=== PATIENT | male | born 1980 | race Caucasian/White ===

== ENCOUNTER 2017-09-16 19:34 | Emergency (ER) | payer MEDICAID ==
[~2017-09-16] VITALS: Ht 172.7 cm; Wt 90.7 kg
[2017-09-16 19:52] VITALS: BP 121/70
[2017-09-16 21:06] VITALS: BP 108/94
== END 2017-09-16 21:06 | disposition home or self-care (01) ==
LOC: MED 19:34
DX: J02.9 Acute pharyngitis, unspecified (principal)
CPT/HCPCS: 99283

== ENCOUNTER 2017-10-30 20:03 | Emergency (ER) | payer MEDICAID ==
[~2017-10-30] VITALS: Ht 170.2 cm; Wt 88.5 kg
[2017-10-30 20:05] VITALS: BP 120/84
--- NOTE | 2017-10-30 20:09 | NUR ---
PT AMBULATORY TO WR W/ STEADY GAIT IN STABLE CONDITION.
--- NOTE | 2017-10-30 20:30 | NUR ---
PT BIB SELF C/O PENIS PAIN AND LEFT GROIN PAIN X 2 DAYS S/P INTERCOURSE. PT DENIES DYSURIA. PT DENIES D/C. PT LAYING IN BED, COMFORT NEEDS MET AT THIS TIME. PT PROVIDED URINE SPECIMEN.
[2017-10-30 20:55] LABS: APPEARANCE,URINE CLEAR (CLEAR); BILIRUBIN,URINE NEGATIVE (NEGATIVE); BLOOD, URINE NEGATIVE (NEGATIVE); COLOR,URINE YELLOW (YELLOW); LEUKOCYTE ESTERASE ,URINE NEGATIVE (NEGATIVE); NITRITE, URINE NEGATIVE (NEGATIVE); UGLUCOSE NEGATIVE (NEGATIVE)
[2017-10-30] MEDS ORDERED: KETOROLAC 60 MG/2 ML VIAL IM ONE (22:55)
[2017-10-30 23:40] VITALS: BP 129/59
[2017-11-01 07:26] LABS: CHLAMYDIA TRACHOMATIS AMP DNA Negative (Negative)
== END 2017-10-30 23:40 | disposition home or self-care (01) ==
LOC: MED 20:03
DX: K40.90 Unilateral inguinal hernia, without obstruction or gangrene, not specified as recurrent (principal)
CPT/HCPCS: 36415; 81003; 87491; 96372; 99283; J1885

== ENCOUNTER 2019-09-03 15:49 | Inpatient (IN) | payer MEDICAID ==
[~2019-09-03] VITALS: Ht 172.7 cm; Wt 76.7 kg
[2019-09-03 16:03] VITALS: BP 113/68
--- NOTE | 2019-09-03 16:12 | NUR ---
PT AMBULATED TO ER BED 09
--- NOTE | 2019-09-03 16:13 | NUR ---
PT REFUSED TO BE PUT IN ROOM 9 D/T FEAR OF CATCHING COVID, NO OTHER BEDS AVAILABLE AT THIS TIME. PLACED IN LOBBY
--- NOTE | 2019-09-03 16:14 | NUR ---
PATIENT DID NOT WANT TO WAIT TO BE SEEN IN BED 9. PATIENT REQUESTING TO WAIT IN LOBBY AND REFUSING TO GO INTO AN ISOLATION ROOM. PT ADVISED THERE ARE NOT ANY OTHER ROOMS AVAILABLE AT THIS TIME. PT STATES "THAT'S FINE I'LL WAIT."
--- NOTE | 2019-09-03 16:40 | NUR ---
PT PLACED IN CHAIR A.
--- NOTE | 2019-09-03 17:06 | NUR ---
PT MOVED TO BED 6.
--- NOTE | 2019-09-03 17:11 | NUR ---
38 Y/O MALE C/O LLQ PAIN, DIARRHEA AND NAUSEA FOR TWO WEEKS. PT STATES WE WENT TO URGENT CARE A FEW WEEKS AGO AND WAS CONFIRMED TO HAVE DIVERTICULITIS, GIVEN ANTIBIOTICS, AND IS ALMOST FINISHED TAKING THE COURSE. PT STATES HE HAS BEEN CONTROLLING PAIN WITH 800MG MOTRIN, BUT TODAY HIS PAIN IS UNBEARABLE AND HE HASNT BEEN ABLE TO EAT ANYTHING SOLID. ABD IS SOFT/TENDER AT LLQ AND NON DISTENDED. RESP EVEN AND UNLABORED. PT IS AFEBRILE. DENIES ANY SOB/COUGH/CP. NO PMH NKA
[2019-09-03] MEDS ORDERED: NACL 0.9% 1,000 ML IV ONE ×2 (17:40→20:10)
[2019-09-03] MEDS ORDERED: cefTRIAXone 1,000 MG VIAL ONE (17:47)
[2019-09-03 17:51] LABS: BASOPHILS # (AUTO) 0.1 K/uL (0.00-0.22); BASOPHILS % (AUTO) 1.5 % (0.0-2.0); EOSINOPHILS % (AUTO) 0.4 % (0.0-4.0); HEMOGLOBIN 13.1 g/dL (12.0-18.0); LYMPHOCYTES # (AUTO) 1.5 K/uL (2.0-11.5); LYMPHOCYTES % (AUTO) 20.5 % (20.5-51.1); MEAN CORPUSCULAR HEMOGLOBIN 30 pg (27-31); MEAN CORPUSCULAR HGB CONC 34 g/dL (33-37); MEAN CORPUSCULAR VOLUME 89.6 fL (80-94); MONOCYTES # (AUTO) 0.7 K/uL (0.8-1.0); MONOCYTES % (AUTO) 9.5 % (1.7-9.3); NEUTROPHILS % (AUTO) 68.1 % (42.2-75.2); PLATELET COUNT (AUTO) 369 K/uL (140-450); RED BLOOD CELL COUNT(AUTO) 4.36 MIL/uL (4.20-6.10); WHITE BLOOD COUNT (AUTO) 7.3 K/uL (4.8-10.8)
--- NOTE | 2019-09-03 17:56 | NUR ---
CT CONSENT SIGNED AT BEDSIDE
[2019-09-03 18:48] LABS: ANION GAP 11.6 (8-16); CARBON DIOXIDE 30.8 mmol/L (21-32); POTASSIUM 4.4 mmol/L (3.5-5.1)
[2019-09-03 18:49] LABS: ALBUMIN 3.2 g/dL (3.4-5.0); TOTAL BILIRUBIN 0.5 mg/dL (0.0-1.0)
--- NOTE | 2019-09-03 19:16 | NUR ---
PT RETURNED BACK FROM CT VIA W/C.
--- NOTE | 2019-09-03 19:27 | NUR ---
REPORT RECEIVED FROM LISANDRA SUAREZ FOR CONTINUITY OF CARE.
[2019-09-03] MEDS ORDERED: metroNIDAZOLE 500 MG/NS PREMIX 100 ML IV ONE (20:20)
[2019-09-03] MEDS ORDERED: METR250T2 PO (20:32)
[2019-09-03] MEDS ORDERED: IBUP-2213 PO (20:32)
[2019-09-03] MEDS ORDERED: CIPR500T4 PO (20:32)
--- NOTE | 2019-09-03 21:17 | NUR ---
PT REQUESTING FOOD. SPOKE WITH LAURA. OKAY TO START ON CLEAR LIQUID DIET. APPLE JUICE AND JELLO PROVIDED.
[2019-09-03] MEDS ORDERED: ONDANSETRON 4 MG/2 ML VIAL IVP PRN (21:45)
[2019-09-03] MEDS ORDERED: HYDROcodone/APAP 7.5/325 MG 1 TAB PO PRN (21:45)
[2019-09-03 22:05] LABS: APPEARANCE,URINE CLEAR (CLEAR); BILIRUBIN,URINE NEGATIVE (NEGATIVE); BLOOD, URINE NEGATIVE (NEGATIVE); COLOR,URINE YELLOW (YELLOW); LEUKOCYTE ESTERASE ,URINE NEGATIVE (NEGATIVE); NITRITE, URINE NEGATIVE (NEGATIVE); PH,URINE 6.5 (5.0-9.0); UGLUCOSE NEGATIVE (NEGATIVE)
--- NOTE | 2019-09-03 22:12 | NUR ---
RECEIVED PATIENT FROM JENNA MEJIA RN. PT AMBULATED FROM RHESSMER TO BED WITH STEADY GAIT. PT IS AAOX4. RESPIRATIONS ARE EQUAL AND UNLABORED ON ROOM AIR. LUNG SOUNDS ARE CLEAR. IV ON RAC 20G NS BOLUS INFUSING. VSS. C/C ABD PAIN X2 WEEKS. PT WAS ON ABX FOR 2 WEEKS FOR DIVERTICULITIS AND TAKING IBUPROFEN FOR PAIN WITH SOME RELIEF. TODAY PAIN GOT WORSE WITH NO RELIEF. DX: COMPLICATED DIVERTICULITIS. MD AT BEDSIDE DOING ASSESSMENT. ADMISSION ASSESSMENT DONE. ABD SOFT AND ACTIVE X4 PT REPORTS HAD DIARRHEA TODAY LBM AT 1500. SKIN IS INTACT. PT IS AMBULATORY. MRSA SWAB DONE. POC DISCUSSED WITH PT. ORIENTED TO HOSPITAL, ROOM, STAFF AND CALL LIGHT. NPO SIGN AT DOOR AND PT VERBALIZED UNDERSTANDING. CALL LIGHT IS WITHIN REACH. WILL ROUND FREQUENTLY.
--- NOTE | 2019-09-03 22:16 | NUR ---
Patient will be admitted to care of DR JO. Admited to TELE. Will go to [id number]. Belongings list completed. Report to ERICK SINGH.
[2019-09-03 22:18] LABS: PROTHROMBIN TIME 10.4 secs (10.8-13.4)
[2019-09-03 22:24] VITALS: BP 110/76
[2019-09-03 22:27] LABS: FREE T4 (FREE THYROXINE) 1.31 ng/dL (0.76-1.46); MAGNESIUM 2.1 mg/dL (1.8-2.4); PHOSPHORUS 4.3 mg/dL (2.5-4.9); THYROID STIMULATING HORMONE 0.88 uIU/mL (0.34-3.74)
[2019-09-03 22:33] LABS: BARBITURATE, URINE NEGATIVE ng/ml (NEG <=200); BENZODIAZEPINE, URINE NEGATIVE ng/mL (NEG <=200); CANNABINOID, URINE NEGATIVE ng/mL (NEG <=50); COCAINE, URINE NEGATIVE ng/mL (NEG <=300); OPIATE, URINE NEGATIVE ng/mL (NEG <=2000); PHENCYCLIDINE SCREEN,URINE NEGATIVE ng/mL (NEG <=25)
[2019-09-04] VITALS: BP 106/69
[2019-09-04] MEDS: ACETAMINOPHEN 325 MG TAB PO PRN ×2 (00:16→20:58)
--- NOTE | 2019-09-04 00:16 | NUR ---
VSS. C/C HEADACHE 05/11 ADMINISTERED TYLENOL FOR PAIN. ALL NEEDS MET. CALL LIGHT IS WITHIN REACH.
--- NOTE | 2019-09-04 01:32 | NUR ---
PATIENT IS IN STABLE CONDITION AND SLEEPING. WILL CONTINUE TO MONITOR.
[2019-09-04] MEDS: DEXT 5% / NACL 0.45% 1,000 ML IV SCH ×3 (02:04→17:55)
--- NOTE | 2019-09-04 02:30 | NUR ---
MADE ROUNDS. PT IS SLEEPING COMFORTABLY IN BED WITH EYES CLOSED. CHEST RISE AND FALL NOTED. CALL LIGHT IS WITHIN REACH. WILL CONTINUE TO MONITOR.
--- NOTE | 2019-09-04 04:45 | NUR ---
MADE ROUND ON PATIENT. PATIENT IT SLEEPING. CALL LIGHT IS WITHIN REACH. WILL CONTINUE TO MONITOR.
[2019-09-04] MEDS ORDERED: IBUPROFEN 600 MG TAB PO PRN (05:15)
[2019-09-04] MEDS ORDERED: KETOROLAC 15 MG/ML VIAL IVP PRN (05:15)
[2019-09-04] MEDS: metroNIDAZOLE 500 MG/NS PREMIX 100 ML IV SCH ×3 (05:22→20:52)
--- NOTE | 2019-09-04 07:00 | NUR ---
RECEIVED REPORT FROM CRATE TIER NURSE. PT IS CURRENTLY LAYING IN BED WITH NO SIGNS OF DISTRESS AT THIS TIME. RESPIRATIONS ARE EVEN AND UNLABORED ON ROOM AIR. SKIN IS INTACT WITH IV ASYMPTOMATIC PATENT AND INFUSING PER ORDERS. PT DOES NOT COMPLAIN OF ANY PAIN AT THIS TIME. SAFETY MEASURES IN PLACE, CALL LIGHT WITHIN REACH AND WILL CONTINUE TO MONITOR.
[2019-09-04 07:13] LABS: BASOPHILS % (AUTO) 0.9 % (0.0-2.0); EOSINOPHILS # (AUTO) 0.2 K/uL (0-0.4); EOSINOPHILS % (AUTO) 3.9 % (0.0-4.0); HEMATOCRIT 38.3 % (36-52); HEMOGLOBIN 12.7 g/dL (12.0-18.0); LYMPHOCYTES # (AUTO) 1.7 K/uL (2.0-11.5); LYMPHOCYTES % (AUTO) 37.1 % (20.5-51.1); MEAN CORPUSCULAR HEMOGLOBIN 30 pg (27-31); MEAN CORPUSCULAR HGB CONC 33 g/dL (33-37); MEAN CORPUSCULAR VOLUME 90.1 fL (80-94); MONOCYTES # (AUTO) 0.6 K/uL (0.8-1.0); MONOCYTES % (AUTO) 12.1 % (1.7-9.3); NEUTROPHILS # (AUTO) 2.2 K/uL (1.8-7.7); PLATELET COUNT (AUTO) 374 K/uL (140-450); RED BLOOD CELL COUNT(AUTO) 4.25 MIL/uL (4.20-6.10); RED CELL DISTRIBUTION WIDTH 13.8 % (11.6-13.7); WHITE BLOOD COUNT (AUTO) 4.7 K/uL (4.8-10.8)
--- NOTE | 2019-09-04 07:24 | NUR ---
PATIENT IS IN STABLE CONDITION. NO SIGNS OF DISTRESS. ENDORSED CONTINUITY OF CARE TO AM NURSE.
[2019-09-04 07:31] LABS: ANION GAP 8.1 (8-16); CARBON DIOXIDE 29.6 mmol/L (21-32); CREATININE 0.8 mg/dL (0.6-1.3); POTASSIUM 3.7 mmol/L (3.5-5.1)
[2019-09-04 07:34] LABS: PHOSPHORUS 3.3 mg/dL (2.5-4.9)
[2019-09-04 08:00] VITALS: BP 105/63
[2019-09-04] MEDS ORDERED: IBUPROFEN 600 MG TAB PO SCH (08:15)
[2019-09-04 08:22] LABS: CHOL/HDL RATIO 4.2 (1-4.5)
--- NOTE | 2019-09-04 08:25 | NUR ---
ADMINISTERED MEDICATIONS PER ORDER AND TOLERATED WELL. PATIENT IS ASKING WHEN THE DOCTOR WILL COME IN TO SEE HIM. NO OTHER COMPLAINTS AT THIS TIME EXCEPT FOR HEADACHE. SAFETY MEASURES IN PLACE AND WILL CONTINUE TO MONITOR.
[2019-09-04] MEDS ORDERED: LACTOBACILLUS RHAMNOSUS GG 1 EACH CAP PO SCH (09:00)
--- NOTE | 2019-09-04 09:02 | NUR ---
PATIENT HAS BEEN SCREENED AND CATEGORIZED HIGH NUTRITION RISK. PATIENT WILL BE SEEN WITHIN 1-2 DAYS OF ADMISSION. 09/04/19-09/05/[address]
--- NOTE | 2019-09-04 10:15 | NUR ---
PHYSICIAN REQUESTED ORDER FOR C.DIFF EXAMINE. EXPLAINED TO PATIENT THE REASON WHY AND PATIENT HAD NO FURTHER QUESTIONS AT THIS TIME. SAFETY MEASURES IN PLACE AND WILL CONTINUE TO MONITOR.
--- NOTE | 2019-09-04 11:22 | NUR ---
WENT TO SEE IF PATIENT HAS HAD BM. PATIENT DENIED AND WILL CALL US WHEN SPECIMEN FOR C. DIFF IS READY. PATIENT HAS NO OTHER CONCERNS AT THIS TIME AND WILL CONTINUE TO MONITOR.
--- NOTE | 2019-09-04 12:25 | NUR ---
ADMINISTERED MEDICATIONS PER ORDER AND TOLERATED WELL. PATIENT IS CURRENTLY SITTING IN BED WATCHING TV IN BED. NO COMPLAINTS AT THIS TIME SAFETY MEASURES IN PLACE AND WILL CONTINUE TO MONITOR.
--- NOTE | 2019-09-04 14:46 | NUR ---
PT IS CURRENTLY SITTING IN BED WITH NO SIGNS OF DISTRESS AT THIS TIME. PATIENT IS UPSET BECAUSE PHYSICIAN HAS NOT COME TOP SEE HIM YET AND HE IS HUNGRY. SAFETY MEASURES IN PLACE AND WILL CONTINUE TO MONITOR.
--- NOTE | 2019-09-04 15:08 | NUR ---
09/04/19 RD INITIAL ASSESSMENT COMPLETED PLEASE REFER TO NUTRITION ASSESSMENT UNDER CARE ACTIVITY FOR ESTIMATED NUTRITIONAL NEEDS. 1. CONTINUE NPO MEDICALLY NECESSARY 2. CONSIDER ADVANCING DIET TO LOW FIBER/LOW RESIDUALS SOFT DIET WHEN MEDICALLY APPROPRIATE 3. CONSIDER TPN IF PATIENT WILL BE NPO >3 [address] TO FOLLOW-UP 2-3 DAYS, HIGH RISK RAUL HERRERA, RD
[2019-09-04 16:00] VITALS: BP 107/73
--- NOTE | 2019-09-04 16:26 | NUR ---
PT IS CURRENTLY SITTING IN BED AND IS UPSET THAT HE IS STILL NPO. PATIENT WOULD LIKE TO SPEAK WITH THE DOCTOR. DR. ROBERTS IS AWARE AND IS GOING TO SPEAK WITH THE PATIENT. SAFETY MEASURES IN PLACE AND WILL CONTINUE TO MONITOR.
--- NOTE | 2019-09-04 17:35 | NUR ---
PATIENT IS CURRENTLY LAYING IN BED WITH NO SIGNS OF DISTRESS AT THIS TIME. PATIENT IS STILL UPSET THAT DR. BARNETT HAS NOT COME TO SEE HIM. SAFETY MEASURES IN PLACE AND WILL CONTINUE TO MONITOR.
--- NOTE | 2019-09-04 18:59 | NUR ---
DR. QUINN CAME TO SEE PATIENT. AND STATED THAT PATIENT CAN NOW BE PLACED ON FULL LIQUID DIET AND IF TOLERATED THEN SOFT DIET TOMORROW. SAFETY MEASURES IN PLACE AND WILL CONTINUE TO MONITOR. WILL ENDORSE TO CHIEF CRUISER NURSE FOR CONTINUITY OF CARE.
--- NOTE | 2019-09-04 19:05 | NUR ---
RECEIVED BEDSIDE REPORT FROM DAY SHIFT NURSE. PATIENT IS AWAKE, ALERT, AND COOPERATIVE. RESPIRATION EVEN UNLABORED ON ROOM AIR. NO DISTRESS NOTED. SKIN IS WARM AND DRY. IV PATENT AND INTACT. PLAN OF CARE WAS DISCUSSED. ALL SAFETY MEASURES IN PLACE. BED IS AT LOW POSITION. CALL LIGHT WITHIN REACH AND VERBALIZES ITS USE. WILL CONTINUE TO MONITOR.
--- NOTE | 2019-09-04 20:05 | NUR ---
INITIAL ASSESSMENT DONE. PATIENT IN STABLE CONDITION. NO DISTRESS NOTED. WILL CONTINUE TO MONITOR.
--- NOTE | 2019-09-04 20:52 | NUR ---
ALL SCHEDULED MEDS WERE GIVEN PER ORDER. NO ASE NOTED. PATIENT COMPLAINED OF HEADACHE. PRN TYLENOL GIVEN PER ORDER. WILL CONTINUE TO MONITOR.
--- NOTE | 2019-09-04 22:29 | NUR ---
CHECKED PATIENT. PATIENT SLEEPING RESPIRATION EVEN UNLABORED ON ROOM AIR. NO DISTRESS NOTED. WILL CONTINUE TO MONITOR.
[2019-09-05] VITALS: BP 91/52
--- NOTE | 2019-09-05 | NUR ---
VITALS WERE TAKEN. PATIENT IN STABLE CONDITION. WILL CONTINUE TO MONITOR.
--- NOTE | 2019-09-05 04:00 | NUR ---
CHECKED PATIENT. PATIENT SLEEPING RESPIRATION EVEN UNLABORED ON ROOM AIR. NO DISTRESS NOTED. WILL CONTINUE TO MONITOR.
[2019-09-05] MEDS: DEXT 5% / NACL 0.45% 1,000 ML IV SCH (04:30)
[2019-09-05] MEDS: metroNIDAZOLE 500 MG/NS PREMIX 100 ML IV SCH (04:30)
--- NOTE | 2019-09-05 07:23 | NUR ---
ENDORSED PATIENT TO DAY SHIFT NURSE FOR CONTINUITY OF CARE. PATIENT IN STABLE CONDITION.
--- NOTE | 2019-09-05 07:30 | NUR ---
RECEIVED PT IN BED AAOX4, NO SOB NOTED, NO C/O PAIN AT THIS TIME. IV TO RAC PATENT AND INTACT. CHEST CLEAR, ABDOMEN SOFT, BOWEL SOUNDS PRESENT. PT ON FULL LIQUID DIET. INSTRUCTED PT TO CALL FOR ASSISTANCE, CALL LIGHT WITHIN REACH, PT VERBALIZED UNDERSTANDING.
[2019-09-05 08:00] VITALS: BP 104/64
--- NOTE | 2019-09-05 09:00 | NUR ---
PT TOLERATED REGULAR DIET WELL FOR BREAKFAST, NO N&V NOTED. NO C/O PAIN.
--- NOTE | 2019-09-05 10:30 | NUR ---
PT AMBULATING TO THE BATHROOM WITHOUT ASSISTANCE, ACTIVITY TOLERATED WELL.
--- NOTE | 2019-09-05 12:30 | NUR ---
PT TOLERATED REGULAR DIET FOR LUNCH, NO N&V NOTED. NO C/O PAIN.
[2019-09-05] MEDS ORDERED: AMOX-1000 PO (12:53)
--- NOTE | 2019-09-05 13:45 | NUR ---
DISCHARGE INSTRUCTIONS AND PRESCRIPTIONS GIVEN TO PT WHICH VERBALIZED FULL UNDERSTANDING FOR THE INSTRUCTIONS GIVEN AND THE NEED TO FOLLOW UP WITH PCP WITHIN 7 DAYS. ARM BANDS AND IV REMOVED, CANNULA TIP INTACT.
--- NOTE | 2019-09-05 13:50 | NUR ---
PT ESCORTED TO THE FRONT LOBBY AMBULATORY, NO COMPLAINTS MADE. PT IS D/C IN STABLE CONDITION.
== END 2019-09-05 14:13 | disposition home or self-care (01) | DRG 244 ==
LOC: MED 15:49 → MTU 21:44
PROVIDERS: ADMIT General Practice; ATTEND General Practice
DX: K57.20 Diverticulitis of large intestine with perforation and abscess without bleeding (principal); N20.1 Calculus of ureter; K76.0 Fatty (change of) liver, not elsewhere classified; K42.9 Umbilical hernia without obstruction or gangrene; E66.3 Overweight; Z68.25 Body mass index [BMI] 25.0-25.9, adult
CPT/HCPCS: 36415; 80048; 80053; 80305; 81003; 82150; 83036; 83690; 83735; 84100; 84439; 84443; 85025; 85610; 85730; 87040; 87070; 87081; 96365; 96366; 96367; 99285; J0696; J3490; J7060; Q9967

== ENCOUNTER 2019-09-17 08:00 | Emergency (ER) | payer MEDICAID ==
[~2019-09-17] VITALS: Ht 172.7 cm; Wt 77.1 kg
[~2019-09-17 08:00] MED LIST: AMOX-1000 PO; IBUP-2213 PO
--- NOTE | 2019-09-17 08:05 | NUR ---
PT AMBULATED TO BED 3.
[2019-09-17 08:12] VITALS: BP 119/81
--- NOTE | 2019-09-17 08:18 | NUR ---
38 YO MALE CO UPPER ABD PAIN FOR 2 DAYS. N/V/D AT THIS TIME. PAIN IS 9/10 CONSTANT BURNING STABBING PAIN THAT DOES NOT RADIATE. PT WAS ADMITTED PREVIOUSLY FOR DIVERTICULOSIS. PT ALSO STATES THAT HE HAS ANXIETY. PMH- ANXIETY RX- [facility]
--- NOTE | 2019-09-17 08:31 | NUR ---
Dr. Mota is evaluating the patient at bedside.
[2019-09-17] MEDS ORDERED: KETOROLAC 30 MG/ML VIAL IVP ONE (08:35)
[2019-09-17] MEDS ORDERED: ONDANSETRON 4 MG/2 ML VIAL IVP ONE (08:35)
[2019-09-17] MEDS ORDERED: NACL 0.9% 1,000 ML IV SCH (08:35)
[2019-09-17 08:53] LABS: BASOPHILS # (AUTO) 0.1 K/uL (0.00-0.22); BASOPHILS % (AUTO) 1.2 % (0.0-2.0); EOSINOPHILS # (AUTO) 0.1 K/uL (0-0.4); EOSINOPHILS % (AUTO) 2.5 % (0.0-4.0); HEMATOCRIT 44.8 % (36-52); HEMOGLOBIN 15.1 g/dL (12.0-18.0); LYMPHOCYTES # (AUTO) 1.2 K/uL (2.0-11.5); LYMPHOCYTES % (AUTO) 25.5 % (20.5-51.1); MEAN CORPUSCULAR HEMOGLOBIN 30 pg (27-31); MEAN CORPUSCULAR HGB CONC 34 g/dL (33-37); MEAN CORPUSCULAR VOLUME 88.8 fL (80-94); MONOCYTES # (AUTO) 0.5 K/uL (0.8-1.0); MONOCYTES % (AUTO) 9.7 % (1.7-9.3); NEUTROPHILS # (AUTO) 2.9 K/uL (1.8-7.7); NEUTROPHILS % (AUTO) 61.1 % (42.2-75.2); PLATELET COUNT (AUTO) 371 K/uL (140-450); RED BLOOD CELL COUNT(AUTO) 5.05 MIL/uL (4.20-6.10); RED CELL DISTRIBUTION WIDTH 14.3 % (11.6-13.7); WHITE BLOOD COUNT (AUTO) 4.8 K/uL (4.8-10.8)
[2019-09-17 09:10] LABS: ANION GAP 15.2 (8-16); CARBON DIOXIDE 26.7 mmol/L (21-32); CREATININE 1.1 mg/dL (0.6-1.3); POTASSIUM 3.9 mmol/L (3.5-5.1); TOTAL BILIRUBIN 0.8 mg/dL (0.0-1.0)
[2019-09-17 10:21] VITALS: BP 110/79
--- NOTE | 2019-09-17 10:23 | NUR ---
Patient discharged with v/s stable. Written and verbal after care instructions given and explained. Patient alert, oriented and verbalized understanding of instructions. Ambulatory with steady gait. All questions addressed prior to discharge. ID band removed. Patient advised to follow up with PMD. Rx of PRILOSEC, NORCO, MOTRIN AND ZOFRAN given. Patient educated on indication of medication including possible reaction and side effects. Opportunity to ask questions provided and answered.
== END 2019-09-17 10:23 | disposition home or self-care (01) ==
LOC: MED 08:00
DX: R10.13 Epigastric pain (principal); R19.7 Diarrhea, unspecified; R11.0 Nausea; F41.9 Anxiety disorder, unspecified; Z79.899 Other long term (current) drug therapy
CPT/HCPCS: 36415; 80053; 83690; 85025; 96361; 96374; 96375; 99284; J1885; J2405; J7030

== ENCOUNTER 2020-07-19 17:23 | Emergency (ER) | payer MEDICAID ==
[~2020-07-19] VITALS: Ht 170.2 cm; Wt 83.0 kg
[2020-07-19 17:29] VITALS: BP 129/76
[2020-07-19] MEDS ORDERED: KETOROLAC 30 MG/ML VIAL IM ONE (17:45)
[2020-07-19] MEDS ORDERED: DICL1GEL19 TP (18:59)
[2020-07-19] MEDS ORDERED: NAPR-1704 PO (18:59)
[2020-07-19 19:08] VITALS: BP 129/76
== END 2020-07-19 19:05 | disposition home or self-care (01) ==
LOC: MED 17:23
DX: M25.512 Pain in left shoulder (principal); X58.XXXA Exposure to other specified factors, initial encounter; Y93.89 Activity, other specified; Y92.89 Other specified places as the place of occurrence of the external cause; Y99.8 Other external cause status
CPT/HCPCS: 73010; 73030; 96372; 99284; J1885